=== PATIENT | female | born 1930 | race Caucasian/White ===

== ENCOUNTER 2016-08-12 17:04 | Inpatient (IN) | payer MEDICARE, BC ==
[2016-08-12] MEDS: Sodium Chloride 0.9% 1,000 ML IV SCH (18:52)
--- NOTE | 2016-08-12 19:43 | EDM.PDOC ---
ED HPI GENERAL MEDICAL PROBLEM - General Chief Complaint: General Stated Complaint: PSYCH Time Seen by Provider: 08/12/16 17:49 Source of Information: Reports: Patient, Family History Limitations: Reports: Altered mental status, Physical impairment - History of Present Illness INITIAL COMMENTS - FREE TEXT/NARRATIVE: 86 y.o.w.f. camr to the ed with her family due to su[place]et of weakness, unable to ambulate. Pt c/o severe back pain, which is chronic, but worse today. Pt is a poor historian, no trauma. poor PO intake, weight loss, no F/C. any movement in her bed hurts. Onset: gradual Onset Date: 08/11/16 Onset Time: 08:00 Duration: Hour(s):, Intermittent Location: Reports: back Quality: Reports: Ache, Burning, Dull Severity: moderate Improves with: Reports: Rest Worsens with: Reports: Movement Context: Reports: Activity Generalized Pain Score (Numeric/FACES): 8 - Related Data Allergies Allergy/AdvReac Type Severity Reaction Status Date / Time No Known Allergies Allergy Verified 08/12/16 18:01 Home Meds: Home Meds Escitalopram [Lexapro] 08/12/16 [History] Past Medical History HEENT History: Reports: Impaired vision, Other (see below) Other HEENT History: wears glasses Gastrointestinal History: Reports: Other (see below) Other Gastrointestinal History: large abd hernia lt side Genitourinary History: Reports: Urinary incontinence 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: Psychiatric History: Reports: Anxiety, OCD - Infectious Disease History Infectious Disease History: Reports: Mumps Social & Family History - Tobacco Use Smoking Status *Q: Never Smoker Second Hand Smoke Exposure: No - Caffeine Use Caffeine Use: Reports: None - Recreational Drug Use Recreational Drug Use: No ED ROS GENERAL - Review of Systems Review Of Systems: Unable To Obtain ED EXAM, GENERAL - Physical Exam Exam: See Below Exam Limited By: Physical impairment General Appearance: alert, WD/WN, mild distress Ears: normal external exam, normal canal Ear Exam: bilateral ear: auricle normal, canal normal, TM normal Nose: normal inspection, normal mucosa, no blood Throat/Mouth: Normal inspection, Normal lips, Normal teeth, Normal gums, No airway compromise Head: atraumatic, normocephalic Neck: normal inspection, supple, non-tender, full range of motion Respiratory/Chest: no respiratory distress, lungs clear, no accessory muscle use , decreased breath sounds, other (poor insp effort) Cardiovascular: normal peripheral pulses, regular rate, rhythm, no edema, no gallop, no JVD, no murmur, no rub GI/Abdominal: normal bowel sounds, soft, non tender, no organomegaly, no distention, no abnormal bruit, no mass (Female) Exam: Deferred Rectal (Female) Exam: Deferred Back Exam: normal inspection, decreased range of motion, paraspinal tenderness, vertebral tenderness Extremities: normal inspection, normal range of motion, non-tender, normal capillary refill, no pedal edema Neurological: alert, CN II-XII intact, normal cognition, abnormal gait Psychiatric: depressed mood Skin Exam: Warm, Dry, Intact, Normal color, No rash Lymphatic: no adenopathy EKG INTERPRETATION EKG Date: 08/12/16 Time: 20:05 Rhythm: NSR [place]: LAD-left axis deviation P-wave: present QRS: normal ST-T: normal QT: normal Comparison: NA - no prior EKG Course - Vital Signs Text/Narrative:: 86 y.o.w.f. camr to the ed with her family due to sudenoset of weakness, unable to ambulate. Pt c/o severe back pain, which is chronic, but worse today. Pt is a poor historian, no trauma. poor PO intake, weight loss, no F/C. any movement in her bed hurts. PE: Cachexia, [place] to ambulate, back pain. ImagingL CXR, Abd falt and upright: NAD as per RAD Labs: UA nl wbc nl Impression: Dehydration, cachexia, poor po intake, weakness, unable to ambulate , back pain Tx: NS, MS Plan: Admit Last Recorded V/S: Last Vital Signs Temp 37.7 C 08/12/16 20:07 Pulse 105 H 08/12/16 20:07 Resp 20 08/12/16 20:07 BP 140/68 08/12/16 20:07 Pulse Ox 94 L 08/12/16 20:07 - Orders/Labs/Meds Orders: Active Orders 24 hr Category Date Time Status Patient Status [ADT] Routine ADT 08/12/16 19:55 Ordered EKG Documentation Completion [RC] ASDIRECTED Care 08/12/16 19:54 Ordered Oxygen Therapy [RC] PRN Care 08/12/16 19:55 Ordered VTE/DVT Education [RC] Per Unit Routine Care 08/12/16 19:55 Ordered Vital Signs [RC] Q4H Care 08/12/16 19:55 Ordered Regular Diet [DIET] Diet 08/12/16 Breakfast Ordered Abdomen 1V Flat [CR] Stat Exams 08/12/16 17:33 Taken Chest 1V Frontal [CR] Stat Exams 08/12/16 17:33 Taken CULTURE BLOOD [BC] Urgent Lab 08/12/16 19:05 Received CULTURE BLOOD [BC] Urgent Lab 08/12/16 19:10 Received Morphine Med 08/12/16 19:54 Ordered 1 mg IVPUSH Q2H PRN Ondansetron [Zofran] Med 08/12/16 19:54 Ordered 8 mg IV Q6H PRN Sodium Chloride 0.9% [Normal Saline] 1,000 ml Med 08/12/16 17:45 Active IV ASDIRECTED Blood Culture x2 Reflex Set [OM.PC] Urgent Oth 08/12/16 17:33 Ordered Resuscitation Status Routine Resus Stat 08/12/16 19:54 Ordered EKG 12 Lead [EK] Routine Ther 08/12/16 19:48 Ordered Medication Orders Sodium Chloride (Normal Saline) 1,000 mls @ 125 mls/hr IV ASDIRECTED TOVA Last Admin: 08/12/16 18:52 Dose: 125 mls/hr Morphine Sulfate (Morphine) 1 mg IVPUSH Q2H PRN PRN Reason: Pain (severe 7-10) Ondansetron HCl (Zofran) 8 mg IV Q6H PRN PRN Reason: Nausea/Vomiting Labs: Laboratory Tests 08/12/16 08/12/16 08/12/16 Range/Units 18:12 18:12 18:12 WBC 7.0 (4.5-12.0) X10-3/uL RBC 5.64 H (3.23-5.20) x10(6)uL Hgb 13.4 (11.5-15.5) g/dL Hct 42.2 (30.0-51.3) % MCV 74.7 L (80-96) fL MCH 23.7 L (27.7-33.6) pg MCHC 31.7 L (32.2-35.4) g/dL RDW 15.6 H (11.5-15.5) % Plt Count 278 (125-369) X10(3)uL MPV 7.3 L (7.4-10.4) fL Neut % (Auto) 82.9 H (46-82) % Lymph % (Auto) 5.7 L (13-37) % [place] % (Auto) 10.5 (4-12) % Eos % (Auto) 1 (1.0-5.0) % Baso % (Auto) 0 (0-2) % Neut # (Auto) 5.9 (1.6-8.3) # Lymph # (Auto) 0.4 L (0.6-5.0) # [place] # (Auto) 0.7 (0.0-1.3) # Eos # (Auto) 0.0 (0.0-0.8) # Baso # (Auto) 0.0 (0.0-0.2) # PT 10.4 (8.7-11.1) INR 1.03 (0.89-1.13) Sodium 135 (135-145) mmol/L Potassium 3.8 (3.5-5.3) mmol/L Chloride 100 (100-110) mmol/L Carbon Dioxide 25 (23-29) mmol/L BUN 21 (8-23) mg/dL Creatinine 1.0 (0.6-1.3) mg/dL Est Cr Clr Drug Dosing 31.60 mL/min Estimated GFR (MDRD) 53 L (>60) BUN/Creatinine Ratio 21.0 H (9-20) Glucose 185 H (80-116) mg/dL Lactic Acid (0.5-2.2) mmol/L Calcium 8.6 (8.6-10.2) mg/dL B-Natriuretic Peptide (0-100) pg/mL Urine Color (YELLOW) Urine Appearance (CLEAR) Urine pH (5.0-6.5) Ur Specific [place] (1.010-1.025) Urine Protein (NEGATIVE) mg/dL Urine Glucose (UA) (NEGATIVE) mg/dL Urine Ketones (NEGATIVE) mg/dL Urine Occult Blood (NEGATIVE) Urine Nitrite (NEGATIVE) Urine Bilirubin (NEGATIVE) Urine Urobilinogen (NEGATIVE) mg/dL Ur Leukocyte Esterase (NEGATIVE) Urine RBC (0) Urine WBC (0) Ur Squamous Epith Cells (NS,R,O) Urine Bacteria (NS) Urine Mucus (NS) 08/12/16 08/12/16 08/12/16 Range/Units 18:12 18:12 18:20 WBC (4.5-12.0) X10-3/uL RBC (3.23-5.20) x10(6)uL Hgb (11.5-15.5) g/dL Hct (30.0-51.3) % MCV (80-96) fL MCH (27.7-33.6) pg MCHC (32.2-35.4) g/dL RDW (11.5-15.5) % Plt Count (125-369) X10(3)uL MPV (7.4-10.4) fL Neut % (Auto) (46-82) % Lymph % (Auto) (13-37) % [place] % (Auto) (4-12) % Eos % (Auto) (1.0-5.0) % Baso % (Auto) (0-2) % Neut # (Auto) (1.6-8.3) # Lymph # (Auto) (0.6-5.0) # [place] # (Auto) (0.0-1.3) # Eos # (Auto) (0.0-0.8) # Baso # (Auto) (0.0-0.2) # PT (8.7-11.1) INR (0.89-1.13) Sodium (135-145) mmol/L Potassium (3.5-5.3) mmol/L Chloride (100-110) mmol/L Carbon Dioxide (23-29) mmol/L BUN (8-23) mg/dL Creatinine (0.6-1.3) mg/dL Est Cr Clr Drug Dosing mL/min Estimated GFR (MDRD) (>60) BUN/Creatinine Ratio (9-20) Glucose (80-116) mg/dL Lactic Acid 2.0 (0.5-2.2) mmol/L Calcium (8.6-10.2) mg/dL B-Natriuretic Peptide 62 (0-100) pg/mL Urine Color Yellow (YELLOW) Urine Appearance Cloudy (CLEAR) Urine pH 6.0 (5.0-6.5) Ur Specific [place] 1.020 (1.010-1.025) Urine Protein Negative (NEGATIVE) mg/dL Urine Glucose (UA) Normal (NEGATIVE) mg/dL Urine Ketones Negative (NEGATIVE) mg/dL Urine Occult Blood Negative (NEGATIVE) Urine Nitrite Negative (NEGATIVE) Urine Bilirubin Negative (NEGATIVE) Urine Urobilinogen Normal (NEGATIVE) mg/dL Ur Leukocyte Esterase Negative (NEGATIVE) Urine RBC 0-5 (0) Urine WBC 0-5 (0) Ur Squamous Epith Cells Few H (NS,R,O) Urine Bacteria Many H (NS) Urine Mucus Few H (NS) Meds: Medications Generic Name Dose Route Start Last Admin Trade Name Freq PRN Reason Stop Dose Admin Sodium Chloride 1,000 mls @ 125 mls/hr 08/12/16 17:45 08/12/16 18:52 Normal Saline IV 125 mls/hr ASDIRECTED TOVA Administration Morphine Sulfate 1 mg 08/12/16 19:54 Morphine IVPUSH Q2H PRN Pain (severe 7-10) Ondansetron HCl 8 mg 08/12/16 19:54 Zofran IV Q6H PRN Nausea/Vomiting Departure - Departure Time of Disposition: 20:11 Disposition: Admitted As Inpatient 68 Condition: fair Clinical Impression: Unable to ambulate, Weakness Back pain Qualifiers: Back pain location: low back pain Chronicity: chronic Back pain laterality: midline Sciatica presence: without sciatica Qualified Code(s): M54.5 - Low back pain; G89.29 - Other chronic pain Referrals: PCP,None [Primary Care Provider] - Forms: ED Department Discharge - My Orders Last 24 Hours: My Active Orders 08/12/16 17:33 Abdomen 1V Flat [CR] Stat Chest 1V Frontal [CR] Stat Blood Culture x2 Reflex Set [OM.PC] Urgent 08/12/16 17:45 Sodium Chloride 0.9% [Normal Saline] 1,000 ml IV ASDIRECTED 08/12/16 19:05 CULTURE BLOOD [BC] Urgent 08/12/16 19:10 CULTURE BLOOD [BC] Urgent 08/12/16 19:48 EKG 12 Lead [EK] Routine 08/12/16 19:54 EKG Documentation Completion [RC] ASDIRECTED Morphine 1 mg IVPUSH Q2H PRN Ondansetron [Zofran] 8 mg IV Q6H PRN Resuscitation Status Routine 08/12/16 19:55 Patient Status [ADT] Routine Oxygen Therapy [RC] PRN VTE/DVT Education [RC] Per Unit Routine Vital Signs [RC] Q4H 08/12/16 Breakfast Regular Diet [DIET] - Assessment/Plan Last 24 Hours: My Active Orders 08/12/16 17:33 Abdomen 1V Flat [CR] Stat Chest 1V Frontal [CR] Stat Blood Culture x2 Reflex Set [OM.PC] Urgent 08/12/16 17:45 Sodium Chloride 0.9% [Normal Saline] 1,000 ml IV ASDIRECTED 08/12/16 19:05 CULTURE BLOOD [BC] Urgent 08/12/16 19:10 CULTURE BLOOD [BC] Urgent 08/12/16 19:48 EKG 12 Lead [EK] Routine 08/12/16 19:54 EKG Documentation Completion [RC] ASDIRECTED Morphine 1 mg IVPUSH Q2H PRN Ondansetron [Zofran] 8 mg IV Q6H PRN Resuscitation Status Routine 08/12/16 19:55 Patient Status [ADT] Routine Oxygen Therapy [RC] PRN VTE/DVT Education [RC] Per Unit Routine Vital Signs [RC] Q4H 08/12/16 Breakfast Regular Diet [DIET]
[2016-08-12] MEDS ORDERED: Morphine 2 MG/ML Syringe IVPUSH PRN (19:54)
[2016-08-12] MEDS ORDERED: Ondansetron 4 MG/2 ML SDV IV PRN (19:54)
[2016-08-13] MEDS: Sodium Chloride 0.9% 1,000 ML IV SCH ×3 (02:30→20:06)
[2016-08-13] MEDS ORDERED: Acetaminophen 325 MG Tab PO PRN (10:28)
[2016-08-13] MEDS ORDERED: Citalopram 10 MG Tab PO SCH (10:30)
--- NOTE | 2016-08-13 10:37 | PCM.HP ---
H&P History of Present Illness - General Date of Service: 08/13/16 Admit Problem/Dx: Admission Diagnosis/Problem Admission Diagnosis/Problem Weakness Source of Information: Patient, Family, Old records, RN History Limitations: Reports: Uncooperative. Denies: No limitations - History of Present Illness Initial Comments - Free Text/Narative: 86-year-old female brought in by the family because of difficulty with ambulation. Patient is at low at home with her , and is unable to take it with her. She has chronic back pain that is severe, and ambulation even with a walker has been difficult. Yesterday she was unable to get up from a sitting position. Patient does have does not want to be here,wants to be back home. Pain is only worse on ambulation she can hardly try myself in bed. She has a history of depression currently stable on escitalopram. She has no fever chest pain shortness of breath and all of the systems were unremarkable. 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: Psychiatric History: Reports: Anxiety, OCD - Infectious Disease History Infectious Disease History: Reports: Mumps - Past Surgical History GI Surgical History: Reports: Other (see below) Other GI Surgeries/Procedures: some type of hemrrhoid surgery Social & Family History - Family History Family Medical History: Noncontributory - Tobacco Use Smoking Status *Q: Never Smoker Second Hand Smoke Exposure: No - Caffeine Use Caffeine Use: Reports: None - Recreational Drug Use Recreational Drug Use: No H&P Review of Systems - Review of Systems: Review Of Systems: See Below Exam - Exam Exam: See Below - Vital Signs Vital Signs: Last Vital Signs Temp 98.6 F 08/13/16 05:40 Pulse 96 08/13/16 05:40 Resp 18 08/13/16 05:40 BP 132/72 08/13/16 05:40 Pulse Ox 94 L 08/13/16 05:40 Weight: 64.501 kg - Exam Quality Assessment: No: supplemental oxygen General: alert, oriented HEENT: PERRLA, Hearing intact, Mucosa moist & pink, Nares patent, Normal nasal septum, Posterior pharynx clear, Conjunctiva clear, EOMI, EACs clear, TMs clear Neck: supple, trachea midline, 2 Lungs: Clear to auscultation, Normal respiratory effort Cardiovascular: regular rate, regular rhythm Abdomen: normal bowel sounds, soft. No: organomegaly Rectal (Female) Exam: Deferred Back Exam: decreased range of motion, paraspinal tenderness, vertebral tenderness. No: full range of motion Extremities: normal inspection Skin: warm, dry, intact Neurological: cranial nerves intact, reflexes equal bilateral Psychiatric: depressed - Patient Data Result Diagrams: 08/12/16 18:12 08/12/16 18:12 Imaging Impressions last 24 hrs: CXR and Abd Xray normal. *Q Meaningful Use (ADM) - VTE *Q VTE Criteria *Q: - Stroke *Q Stroke Criteria *Q: - AMI *Q AMI Criteria *Q: - Problem List (1) MDD (major depressive disorder) SNOMED Code(s): 492330465, 809265208 ICD Code: F32.9 - MAJOR DEPRESSIVE DISORDER, SINGLE EPISODE, UNSPECIFIED Status: Acute Current Visit: Yes Qualifiers: Major depression recurrence: recurrent Active/Remission status: currently active Psychotic features: without psychotic features (2) Back pain SNOMED Code(s): 006298012 ICD Code: M54.9 - DORSALGIA, UNSPECIFIED Status: Acute Current Visit: Yes Qualifiers: Back pain location: low back pain Chronicity: chronic Back pain laterality: midline Sciatica presence: without sciatica Qualified Code(s): M54.5 - Low back pain; G89.29 - Other chronic pain (3) Unable to ambulate SNOMED Code(s): 562013550 ICD Code: R26.2 - DIFFICULTY IN WALKING, NOT ELSEWHERE CLASSIFIED Status: Acute Current Visit: Yes Problem List Initiated/Reviewed/Updated: Yes Orders Last 24hrs: Active Orders 24 hr Category Date Time Status OT Evaluation and Treatment [CONS] Routine Cons 08/13/16 10:28 Ordered PT Evaluation and Treatment [CONS] Routine Cons 08/13/16 10:28 Ordered Lumbar Spine wo Cont [CT] Routine Exams 08/13/16 10:28 Ordered Thoracic Spine wo Cont [CT] Routine Exams 08/13/16 10:28 Ordered MAGNESIUM [CHEM] Routine Lab 08/13/16 10:30 Ordered PHOSPHORUS [CHEM] Routine Lab 08/13/16 10:30 Ordered SEDIMENTATION RATE MANUAL [HEME] Urgent Lab 08/13/16 10:30 Ordered UA W/MICROSCOPIC [URIN] Routine Lab 08/13/16 10:30 Uncollected VITAMIN D,25 HYDROXY [REF] Urgent Lab 08/13/16 10:30 Ordered Acetaminophen [Tylenol] Med 08/13/16 10:28 Ordered 650 mg PO Q6H PRN Celecoxib [CeleBREX] Med 08/13/16 10:30 Ordered 200 mg PO DAILY Escitalopram [Lexapro] Med 08/13/16 10:30 Unverified DOSE UNIT RTE FREQ Medication Orders Acetaminophen (Tylenol) 650 mg PO Q6H PRN PRN Reason: Breakthrough Pain Celecoxib (Celebrex) 200 mg PO DAILY TOVA Sodium Chloride (Normal Saline) 1,000 mls @ 125 mls/hr IV ASDIRECTED TOVA Last Admin: 08/13/16 10:10 Dose: 125 mls/hr Infusion: 08/13/16 10:10 Dose: 125 mls/hr Admin: 08/13/16 02:30 Dose: 125 mls/hr Infusion: 08/13/16 02:30 Dose: 125 mls/hr Admin: 08/12/16 18:52 Dose: 125 mls/hr Morphine Sulfate (Morphine) 1 mg IVPUSH Q2H PRN PRN Reason: Pain (severe 7-10) Last Admin: 08/13/16 09:51 Dose: 1 mg Ondansetron HCl (Zofran) 8 mg IV Q6H PRN PRN Reason: Nausea/Vomiting Last Admin: 08/13/16 10:07 Dose: 8 mg Assessment/Plan Comment:: after gathering all the information I determined that the patient is generally unable to ambulate despite her insistence. I ordered a CT of the lumbar and thoracic spine, and will initiate Celebrex 200 mg a day to control her pain and would resume Lexapro from today as well. I will use Tylenol as needed for pain and physical on the patient up to see on Monday to determine disposition and discharge planning.
[2016-08-13] MEDS: Celecoxib 200 MG Cap PO SCH (12:44)
[2016-08-14] MEDS: Sodium Chloride 0.9% 1,000 ML IV SCH ×2 (03:47→11:59)
[2016-08-14] MEDS ORDERED: Ketorolac 30 MG/ML SDV IVPUSH PRN (09:11)
[2016-08-14] MEDS: Celecoxib 200 MG Cap PO SCH (09:14)
--- NOTE | 2016-08-14 10:49 | PN ---
DATE SEEN: 08/14/2016 REASON FOR VISIT: Back pain. HISTORY OF PRESENT ILLNESS: This is an 86-year-old female with back pain, chronic, only when she moves. The daughter whom I spoke with stated that she had this for several years. In fact, she has been spending most in the recliner for the last 20 years. She walks with a walker, but in the last couple of days has been unable to walk at all. The nurses also reported seeing redness of the skin in the perineal area and sacral area. There has been no nausea or vomiting. No fever. No diarrhea or chest pain. CURRENT MEDICATIONS: Reviewed. SOCIAL HISTORY: Lives with who is also in his 80s. REVIEW OF SYSTEM: Negative, all other systems. PHYSICAL EXAMINATION: VITAL SIGNS: Blood pressure 143/76, pulse is normal, temp 97.8. MENTAL STATUS: Alert. Normal affect and memory. NEUROLOGIC: She has pin-rolling and resting tremors. SKIN: Mild redness and erythema in the sacral area. Musculoskeletal: Tender thoracic and lumbar spine. IMAGING: CT of the spine revealed degenerative disk disease within the thoracic and lumbar spines and thoracic kyphosis. No acute fracture noted. There was a 5.5 x 2.4 cm sized right pelvic soft tissue mass. FINAL IMPRESSION: 1. Chronic back pain. 2. Physical deconditioning. 3. Right pelvic mass. 4. Major depression. 5. Tremors, possibly parkinsonian in nature. 6. Decubitus ulcer stage I. PLAN: 1. Aquacel to the decubitus ulcer and relieve pressure by constant position changes. 2. I started the patient on Sinemet 250 one tablet t.i.d. We will continue with Lexapro from previous prescription. I would want her to be followed tomorrow by Physical Therapy and social service technician to determine disposition. /[id number] KULDEEP/HERNAN
[2016-08-14] MEDS: Carbidopa/Levodopa 25-250 MG Tab PO SCH ×2 (14:18→20:29)
[2016-08-15] MEDS ORDERED: Ketorolac 15 MG/ML SDV IVPUSH PRN (06:25)
[2016-08-15] MEDS: Carbidopa/Levodopa 25-250 MG Tab PO SCH ×2 (08:11→08:44)
[2016-08-15] MEDS: Celecoxib 200 MG Cap PO SCH ×2 (08:11→08:44)
--- NOTE | 2016-08-15 10:55 | PN ---
DATE SEEN: 08/15/2016 REASON FOR VISIT: Back pain. HISTORY OF PRESENT ILLNESS: An 86-year-old female with chronic back pain due to degenerative joint disease and also had difficulty with ambulation overnight. No new complaints. REVIEW OF SYSTEMS: Tremors, chronic. Mild dementia. MEDICATIONS: Reviewed. ALLERGIES: Reviewed. PHYSICAL EXAMINATION: VITAL SIGNS: Blood pressure 134/95, temperature is 98.4. GENERAL: Pleasant. LABORATORY DATA: No new labs today. A CT scan, severe DJD and kyphosis. There is also a mass noted in the ovarian and abdomen area. IMPRESSION: 1. Chronic back pain due to degenerative joint disease. 2. Physical deconditioning. 3. Pelvic mass. 4. Major depression. 5. Parkinsonism. 6. Decubitus ulcer, stage I. PLAN: I discussed with the family this morning along with Maggy Zurita, and the patient insists that she wants to go home today, however we will have physical therapy see her and determine her needs and possibly we can transfer to swing bed for physical strengthening and rehab. For now, we will continue with the above medications. The family and the patient not interested in following up on the pelvic mass at this time. /[id number] KULDEEP/HERNAN
[2016-08-15 11:42] VITALS: BP 118/68
--- NOTE | 2016-08-16 00:04 | DISCH ---
DISCHARGE DATE: 08/15/2016 REASON FOR ADMISSION: 1. Chronic back pain. 2. Physical deconditioning. 3. Depression. CONSULTATIONS: Physical therapy . DISCHARGE DIAGNOSES: 1. 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 2. Physical deconditioning and inability to ambulate. 3. Major depression. 4. Pelvic mass. 5. Parkinsonism. BRIEF HISTORY AND HOSPITAL COURSE: An 86-year-old female, brought in by the family because of inability to get up and ambulate even with a walker. She has had chronic back pain and rarely sees a physician. She had mild stage I decubitus ulcer, which was treated conservatively with dressing and position changes. Her pain was controlled by Celebrex p.r.n. Lumbar CT done on the revealed degenerative joint disease and kyphosis, severe. I started on Sinemet for pill rolling and cogwheel rigidity, tremors thought to be due to parkinsonism. She also was continued on a regular Lexapro that she takes at home. Physical Therapy saw her on August 15, determined that she has needs for physical and occupational therapy for strengthening and ambulation, and she will be discharged to the swing bed for rehab. DISCHARGE MEDICATIONS: 1. Celebrex 20 mg daily. 2. Escitalopram 20 mg a day. 3. Sinemet 1 tablet t.i.d. 4. Acetaminophen p.r.n. FOLLOWUP: She will be seen at the swing bed by the oncoming physician. /[id number] KULDEEP/HERNAN
== END 2016-08-15 13:25 | disposition swing bed (61) | DRG 552 ==
LOC: FB.ED 17:04 → FB.MS 19:55 → UNDOADMIN 19:55 → FB.MS 08-13 12:30 → UNDOADMIN 08-13 12:30 → UNDODISIN 08-15 13:25
PROVIDERS: ADMIT Emergency Medicine; ATTEND Family Medicine
DX: M54.5 Low back pain (principal); M51.35 Other intervertebral disc degeneration, thoracolumbar region; G89.29 Other chronic pain; R53.81 Other malaise; F32.9 Major depressive disorder, single episode, unspecified; G20 Parkinson's disease; L89.91 Pressure ulcer of unspecified site, stage 1; R19.09 Other intra-abdominal and pelvic swelling, mass and lump
CPT/HCPCS: 36415 ×2; 71010; 72131; 74000; 80048; 81001; 82306; 83605; 83735; 83880; 84100; 85025; 85610; 85651; 87040 ×2; 96360; 99284; 99285; J2270; J2405; J7040 ×3; 72128; 93005; 97162-GP; 97165-GO; A9270-GY; J1885

== ENCOUNTER 2016-08-15 13:30 | Inpatient (IN) | payer MEDICARE, BC ==
[2016-08-15] MEDS: Carbidopa/Levodopa 25-250 MG Tab PO SCH ×2 (14:18→21:23)
[2016-08-16] MEDS: Carbidopa/Levodopa 25-250 MG Tab PO SCH ×3 (09:15→21:13)
[2016-08-16] MEDS: Escitalopram 20 MG Tab PO SCH (09:16)
[2016-08-16] MEDS: Celecoxib 200 MG Cap PO SCH (09:16)
[2016-08-17] MEDS: Carbidopa/Levodopa 25-250 MG Tab PO SCH ×3 (08:22→20:10)
[2016-08-17] MEDS: Escitalopram 20 MG Tab PO SCH (08:22)
[2016-08-17] MEDS: Celecoxib 200 MG Cap PO SCH (08:22)
[2016-08-18] MEDS: Carbidopa/Levodopa 25-250 MG Tab PO SCH ×3 (09:06→20:53)
[2016-08-18] MEDS: Escitalopram 20 MG Tab PO SCH (09:06)
[2016-08-18] MEDS: Celecoxib 200 MG Cap PO SCH (09:06)
[2016-08-19] MEDS: Escitalopram 20 MG Tab PO SCH (09:08)
[2016-08-19] MEDS: Celecoxib 200 MG Cap PO SCH (09:08)
[2016-08-19] MEDS: Carbidopa/Levodopa 25-250 MG Tab PO SCH ×3 (09:08→20:40)
[2016-08-20] MEDS: Celecoxib 200 MG Cap PO SCH (08:06)
[2016-08-20] MEDS: Escitalopram 20 MG Tab PO SCH (08:06)
[2016-08-20] MEDS: Carbidopa/Levodopa 25-250 MG Tab PO SCH ×3 (08:06→20:07)
[2016-08-21] MEDS: Carbidopa/Levodopa 25-250 MG Tab PO SCH ×3 (08:21→21:01)
[2016-08-21] MEDS: Celecoxib 200 MG Cap PO SCH (08:21)
[2016-08-21] MEDS: Escitalopram 20 MG Tab PO SCH (08:21)
--- NOTE | 2016-08-22 08:13 | PCM.PN ---
- General Info Date of Service: 08/22/16 Admission Dx/Problem (Free Text): Patient states she is doing well. She states she wants to go home. She denies back pain, depression, chest pain or shortness of breath. She states she has people at her and granddaughter help her at home. - Patient Data Vitals - most recent: Last Vital Signs Temp 98.3 F 08/21/16 07:30 Pulse 80 08/21/16 07:30 Resp 24 H 08/21/16 07:30 BP 153/75 H 08/21/16 07:30 Pulse Ox 94 L 08/21/16 07:30 Weight - most recent: 145 lb 9.6 oz I&O - last 24 hours: Intake & Output 08/21/16 08/22/16 08/22/16 22:59 06:59 14:59 Intake Total 50 Output Total 0 Balance 50 Med Orders - Current: Current Medications Carbidopa/Levodopa (Sinemet 25-250 Mg) 1 tab PO TID [facility] Last Admin: 08/21/16 21:01 Dose: 1 tab Celecoxib (Celebrex) 200 mg PO DAILY [facility] Last Admin: 08/21/16 08:21 Dose: 200 mg Escitalopram Oxalate (Lexapro) 20 mg PO DAILY [facility] Last Admin: 08/21/16 08:21 Dose: 20 mg - Exam General: alert, oriented, cooperative Lungs: Clear to auscultation, Normal respiratory effort Cardiovascular: Regular Rate, Regular Rhythm Extremities: no edema - Problem List & Annotations (1) Physical deconditioning SNOMED Code(s): 54477819512755 Code(s): R53.81 - OTHER MALAISE Status: Acute Current Visit: Yes (2) Parkinsonian features SNOMED Code(s): 435509961 Code(s): R25.9 - UNSPECIFIED ABNORMAL INVOLUNTARY MOVEMENTS Status: Acute Current Visit: Yes (3) Back pain SNOMED Code(s): 199506441 Code(s): M54.9 - DORSALGIA, UNSPECIFIED Status: Acute Current Visit: No (4) MDD (major depressive disorder) SNOMED Code(s): 463810629, 693283114 Code(s): F32.9 - MAJOR DEPRESSIVE DISORDER, SINGLE EPISODE, UNSPECIFIED Status: Acute Current Visit: No - Problem List Review Problem List Initiated/Reviewed/Updated: Yes - Plan Plan:: 1. Continue current care with PT/OT.
[2016-08-22] MEDS ORDERED: Acetaminophen 325 MG Tab PO PRN (08:38)
[2016-08-22] MEDS: Escitalopram 20 MG Tab PO SCH (09:26)
[2016-08-22] MEDS: Celecoxib 200 MG Cap PO SCH (09:26)
[2016-08-22] MEDS: Carbidopa/Levodopa 25-250 MG Tab PO SCH ×3 (09:26→21:24)
[2016-08-23] MEDS: Celecoxib 200 MG Cap PO SCH (09:00)
[2016-08-23] MEDS: Escitalopram 20 MG Tab PO SCH (09:00)
[2016-08-23] MEDS: Carbidopa/Levodopa 25-250 MG Tab PO SCH ×3 (09:01→21:00)
[2016-08-24] MEDS: Celecoxib 200 MG Cap PO SCH (09:26)
[2016-08-24] MEDS: Escitalopram 20 MG Tab PO SCH (09:27)
[2016-08-24] MEDS: Carbidopa/Levodopa 25-250 MG Tab PO SCH ×3 (09:27→21:37)
[2016-08-25] MEDS: Escitalopram 20 MG Tab PO SCH (08:01)
[2016-08-25] MEDS: Carbidopa/Levodopa 25-250 MG Tab PO SCH ×3 (08:01→21:23)
[2016-08-25] MEDS: Celecoxib 200 MG Cap PO SCH (08:01)
[2016-08-26] MEDS: Carbidopa/Levodopa 25-250 MG Tab PO SCH ×3 (08:22→20:35)
[2016-08-26] MEDS: Escitalopram 20 MG Tab PO SCH (08:22)
[2016-08-26] MEDS: Celecoxib 200 MG Cap PO SCH (08:22)
[2016-08-27] MEDS: Celecoxib 200 MG Cap PO SCH (08:04)
[2016-08-27] MEDS: Escitalopram 20 MG Tab PO SCH (08:04)
[2016-08-27] MEDS: Carbidopa/Levodopa 25-250 MG Tab PO SCH ×3 (08:04→20:54)
[2016-08-28] MEDS: Celecoxib 200 MG Cap PO SCH (08:03)
[2016-08-28] MEDS: Escitalopram 20 MG Tab PO SCH (08:03)
[2016-08-28] MEDS: Carbidopa/Levodopa 25-250 MG Tab PO SCH ×3 (08:03→20:56)
[2016-08-29] MEDS: Celecoxib 200 MG Cap PO SCH (08:00)
[2016-08-29] MEDS: Escitalopram 20 MG Tab PO SCH (08:00)
[2016-08-29] MEDS: Carbidopa/Levodopa 25-250 MG Tab PO SCH ×3 (08:00→20:21)
--- NOTE | 2016-08-29 10:40 | PCM.SN ---
- Free Text/Narrative Note: 01/29/17 S. in swing bed for strengthening and ADLs due to falls and weakness. doing well. tells me she is much improved. she is tolerating her diet. she is ambulating in the halls with her wheeled walker. Pt/OT continues to work with her. she denies and pain, sob, mtz, n/v, abd pain, choking or coughing, bowel or abd problems, getting up to bathroom. would like to be discharged today. Nursing notes, labs, pt/ot, meds, studies, I/O, vitals and assessments reviewed. Objective: pleasant alert oriented female. no resp distress. breathing comfortably. wearing glasses. op clear. mmm. conj clear. neck full rom. lungs with deminished in the bases but aerating well. no wheezing or rhonchi. cv: rrr, equal pulses abd; soft, nt, bs normal ext: full equal strength. no focal deficits. neuro; intact. Psych: normal mood, affect, cognition, alert ox3. Assessment: Active/Suspected Problems Current Visit Only Table Problem priority Onset Parkinsonian features 2 Physical deconditioning 1 Plan: has done well and back to baseline with continued therapy and will be transitioning from home over to [facility] once finances are in order. she will require continued work on strengthening and direction and med management will home health health pt/ot.
[2016-08-30] MEDS: Celecoxib 200 MG Cap PO SCH (08:17)
[2016-08-30] MEDS: Carbidopa/Levodopa 25-250 MG Tab PO SCH ×3 (08:17→20:35)
[2016-08-30] MEDS: Escitalopram 20 MG Tab PO SCH (08:17)
[2016-08-31] MEDS: Celecoxib 200 MG Cap PO SCH (08:30)
[2016-08-31] MEDS: Escitalopram 20 MG Tab PO SCH (08:31)
[2016-08-31] MEDS: Carbidopa/Levodopa 25-250 MG Tab PO SCH ×3 (08:32→21:50)
[2016-09-01] MEDS: Carbidopa/Levodopa 25-250 MG Tab PO SCH ×3 (08:04→20:26)
[2016-09-01] MEDS: Escitalopram 20 MG Tab PO SCH (08:04)
[2016-09-01] MEDS: Celecoxib 200 MG Cap PO SCH (08:04)
--- NOTE | 2016-09-01 12:35 | PCM.DCSUM1 ---
Discharge Summary - Discharge Data Discharge Date: 09/02/16 Discharge Disposition: Home, W Home Health Agency 06 Condition: Good - Discharge Diagnosis/Problem(s) (1) Weakness SNOMED Code(s): 10892701 ICD Code: R53.1 - WEAKNESS Status: Acute Current Visit: No (2) Physical deconditioning SNOMED Code(s): 82744508626897 ICD Code: R53.81 - OTHER MALAISE Status: Acute Current Visit: Yes (3) Parkinsonian features SNOMED Code(s): 356760895 ICD Code: R25.9 - UNSPECIFIED ABNORMAL INVOLUNTARY MOVEMENTS Status: Chronic Current Visit: Yes (4) Back pain SNOMED Code(s): 431768764 ICD Code: M54.9 - DORSALGIA, UNSPECIFIED Status: Chronic Current Visit: No Qualifiers: Back pain location: low back pain Chronicity: chronic Back pain laterality: midline Sciatica presence: without sciatica Qualified Code(s): M54.5 - Low back pain; G89.29 - Other chronic pain (5) MDD (major depressive disorder) SNOMED Code(s): 130360660, 410333881 ICD Code: F32.9 - MAJOR DEPRESSIVE DISORDER, SINGLE EPISODE, UNSPECIFIED Status: Chronic Current Visit: No Qualifiers: Major depression recurrence: recurrent Active/Remission status: in full remission Qualified Code(s): F33.42 - Major depressive disorder, recurrent, in full remission (6) Unable to ambulate SNOMED Code(s): 825763569 ICD Code: R26.2 - DIFFICULTY IN WALKING, NOT ELSEWHERE CLASSIFIED Status: Chronic Current Visit: No - Patient Summary/Data Consults: Consultations 08/15/16 13:49 OT Evaluation and Treatment [CONS] Routine Please Evaluate and Treat. OT Reason for Consult: ADL's This query below is only for informational purposes and is not editable. PT Evaluation and Treatment [CONS] Routine Please Evaluate and Treat. PT Reason for Consult: Ambulation This query below is only for informational purposes and is not editable. Hospital Course: pleasant 86y female direct admitted for weakness and deconditioning requiring inpat fluid/electrolyte management, respirator care, dementia/depression cares regarding improvement in cues/orientation and prognosis for discharge. after a few days was deemed appropriate for swing bed with PT/OT where she has done quite well and back to near baseline with cares but will need additional home health via [facility] for continued physical conditioning/gait/cues in order to prevent falls and assess additional needs that would be appropriate for safety in her home environment. She will be going home and her daughter will pick her up with outpt medications and appts to be reviewed and discussed with Home Health Team as well. She awake, smiling, sitting upright in wheel chair today, glasses on, teds on bilat and no oxygen with easy breathing. Tells me she is excited to go home. lungs clear bilate cv RRR, 1+ symetric edema bilat lower extremities/improved with teds, knee high. no pain or tenderness abd; obese, soft, bs normal back; no tenderness or wounds. depends on. neuro; no focal deficit, tremor to hands bilat that is stable. Tolerating diet, using walker to bathroom with assist, no falls, no confusion or distress. no f/c, no n/v, no choking or coughing, no mtz, no neck or back pain , no cp/pressure or palpitations. tells me her tummy feels good. no sob. no numbness or tingling. no burning with urination/or malodorous urine. no pain to legs or feet. Nursing without concerns with discharge disposition. - Patient Instructions Diet: Heart Healthy Diet, Low Sodium Activity: Full Weight Bearing Notify Provider of: Fever, Nausea and/or Vomiting - Discharge Plan Home Medications: Home Meds Escitalopram [Lexapro] 20 mg PO DAILY 08/12/16 [History] Carbidopa/Levodopa [Sinemet 25-250 MG] 1 tab PO TID 08/16/16 [History] Celecoxib [CeleBREX] 200 mg PO DAILY 08/16/16 [History] - Discharge Summary/Plan Comment DC Time >30 min.: Yes Discharge Summary/Plan Comment: Follow up with pcp in 7-10d as needed for hospitalization review. home health to communicate with pcp as well. - Patient Data Vitals - Most Recent: Vital Signs (72 hours) 08/30/16 08/31/16 09/01/16 07:10 07:07 07:49 Temperature [ 98.8 F 97.9 F Oral] Temperature [ 97.0 F Tympanic] Pulse, 87 76 Peripheral [ Left Pulse Oximetry] Respiratory 16 16 18 Rate Blood Pressure 136/91 H [Left Upper Arm ] Blood Pressure 127/63 136/74 [Right Upper] O2 Sat by Pulse 95 95 96 Oximetry Weight - Most Recent: 66.95 kg I&O - Last 24 hours: Intake & Output 08/30/16 08/31/16 09/01/16 09/02/16 06:59 06:59 06:59 06:59 Intake Total 150 120 140 Balance 150 120 140 Med Orders - Current: Current Medications Acetaminophen (Tylenol) 650 mg PO Q4H PRN PRN Reason: Pain Last Admin: 08/22/16 09:26 Dose: 650 mg Carbidopa/Levodopa (Sinemet 25-250 Mg) 1 tab PO TID [facility] Last Admin: 09/01/16 08:04 Dose: 1 tab Celecoxib (Celebrex) 200 mg PO DAILY [facility] Last Admin: 09/01/16 08:04 Dose: 200 mg Escitalopram Oxalate (Lexapro) 20 mg PO DAILY [facility] Last Admin: 09/01/16 08:04 Dose: 20 mg *Q Meaningful Use (DIS) - VTE *Q VTE Criteria *Q: - Stroke *Q Stroke Criteria *Q: - AMI *Q AMI Criteria *Q:
[2016-09-02] MEDS: Escitalopram 20 MG Tab PO SCH (08:18)
[2016-09-02] MEDS: Celecoxib 200 MG Cap PO SCH (08:18)
[2016-09-02] MEDS: Carbidopa/Levodopa 25-250 MG Tab PO SCH (08:18)
[2016-09-02 10:28] VITALS: BP 141/58
== END 2016-09-02 08:55 | disposition home health service (06) | DRG 948 ==
LOC: FB.MS 13:30
PROVIDERS: ADMIT Family Medicine; ATTEND Family Medicine
DX: R53.81 Other malaise (principal); R53.1 Weakness; M54.5 Low back pain; G89.29 Other chronic pain; F32.9 Major depressive disorder, single episode, unspecified; R26.2 Difficulty in walking, not elsewhere classified; G20 Parkinson's disease
CPT/HCPCS: 97110-GO; 97110-GP; 97116-GP; 97530-GO; 97530-GO-KX; 97530-GP; 97535-GO; A9270-GY